=== PATIENT | male | born 1970 | race Caucasian/White ===

== ENCOUNTER 2025-04-28 08:52 | Emergency (ER) | payer OTHER ==
[2025-04-28] MEDS ORDERED: Ketorolac Tromethamine 30 MG (1 mL) VIAL ONE (09:05)
== END 2025-04-28 10:00 | disposition home or self-care (01) ==
LOC: ERS 08:52
DX: S81.031A Puncture wound without foreign body, right knee, initial encounter (principal); L03.115 Cellulitis of right lower limb; W22.8XXA Striking against or struck by other objects, initial encounter
CPT/HCPCS: 96372; 99283; J1885